=== PATIENT | male | born 1985 | race Hispanic/Latino ===

== ENCOUNTER 2017-04-11 18:30 | Emergency (ER) | payer OTHER ==
--- NOTE | 2017-04-11 21:07 | XRay Report ---
FINAL REPORT EXAM: XR KNEE 1-2V RT HISTORY: Right knee injury TECHNIQUE: Right knee 2 views PRIORS: None. FINDINGS: No fracture is identified. No dislocation seen. No evidence of joint effusion. Patella demonstrates normal positioning. No acute bony abnormality identified. IMPRESSION: Negative knee series
[2017-04-11] MEDS ORDERED: MOTRIN PO ONE (21:33)
[2017-04-11] MEDS ORDERED: MOTRIN ONE (21:33)
[2017-04-11] MEDS ORDERED: FLEXERIL PO ONE (23:14)
[2017-04-11] MEDS ORDERED: NORCO 7.5/325 PO ONE (23:14)
--- NOTE | 2017-04-12 01:09 | Emergency Department Report ---
ED Lower Extremity HPI - General Chief Complaint: Extremity Injury, Lower Stated Complaint: RIGHT KNEE PAIN/WORK RELATED Source: patient Mode of arrival: Wheelchair Limitations: No Limitations - History of Present Illness Initial Comments: 31 year old male presents to ED with right knee pain x 1 day after jumping off of stationary truck. patient states the jump was approx 4 feet. patient is stable, neurologically intact and in no acute distress. patient denies LOC or trauma to head. MD Complaint: knee injury -: Sudden Injury: Knee: Right Place: street/outdoors Severity: mild Worsens With: weight bearing, movement Context: fall, jumping Associated Symptoms: swelling, unable to bear weight. denies: numbness, tingling - Related Data Previous Rx's Medication Instructions Recorded Last Taken Type Meloxicam [Mobic] 7.5 mg PO QDAY #7 tablet 04/12/17 Unknown Rx methOCARBAMOL [Robaxin TAB] 500 mg PO TID #21 tab 04/12/17 Unknown Rx Allergies Allergy/AdvReac Type Severity Reaction Status Date / Time No Known Allergies Allergy Verified 04/11/17 21:30 ED Review of Systems ROS: Stated complaint: RIGHT KNEE PAIN/WORK RELATED Other details as noted in HPI Constitutional: denies: chills, fever Eyes: denies: eye pain, eye discharge, vision change ENT: denies: ear pain, throat pain Respiratory: denies: cough, shortness of breath, wheezing Cardiovascular: denies: chest pain, palpitations Endocrine: no symptoms reported Gastrointestinal: denies: abdominal pain, nausea, vomiting, diarrhea Genitourinary: denies: urgency, dysuria Musculoskeletal: joint swelling, arthralgia (right knee pain). denies: back pain Skin: denies: rash, lesions Neurological: denies: headache, weakness, numbness, paresthesias, confusion, vertigo Psychiatric: denies: anxiety, depression Hematological/Lymphatic: denies: easy bleeding, easy bruising ED Past Medical Hx - Past Medical History Previous Medical History?: No - Surgical History Past Surgical History?: Yes Hx Open Heart Surgery: Yes Additional Surgical History: Ankle surgery - Social History Smoking Status: Current Every Day Smoker Substance Use Type: Alcohol - Medications Home Medications: Home Medications Medication Instructions Recorded Confirmed Last Taken Type Meloxicam [Mobic] 7.5 mg PO QDAY #7 tablet 04/12/17 Unknown Rx methOCARBAMOL [Robaxin TAB] 500 mg PO TID #21 tab 04/12/17 Unknown Rx ED Physical Exam - General Limitations: No Limitations General appearance: alert, in no apparent distress - Head Head exam: Present: atraumatic, normocephalic - Eye Eye exam: Present: normal appearance - ENT ENT exam: Present: mucous membranes moist - Neck Neck exam: Present: normal inspection, full ROM. Absent: tenderness - Respiratory Respiratory exam: Present: normal lung sounds bilaterally. Absent: respiratory distress, wheezes, rales, rhonchi - Cardiovascular Cardiovascular Exam: Present: regular rate, normal rhythm. Absent: systolic murmur, diastolic murmur, rubs, gallop - GI/Abdominal GI/Abdominal exam: Present: soft, normal bowel sounds. Absent: distended, tenderness, guarding - Rectal Rectal exam: Present: deferred - Extremities Exam Extremities exam: Present: normal inspection - Expanded Lower Extremity Exam Right Hip exam: Present: normal inspection, full ROM. Absent: tenderness Upper Leg exam: Present: normal inspection, full ROM. Absent: tenderness Knee exam: Present: tenderness, swelling (mild). Absent: full ROM (limited ROM due to pain), dislocation, erythema, full knee extension Lower Leg exam: Present: normal inspection, full ROM. Absent: tenderness Ankle exam: Present: normal inspection, full ROM. Absent: tenderness Foot/Toe exam: Present: normal inspection, full ROM. Absent: tenderness Neuro vascular tendon exam: Present: no vascular compromise Gait: Positive: not tested/not observed, unable to bear weight - Back Exam Back exam: Present: normal inspection, full ROM. Absent: tenderness - Neurological Exam Neurological exam: Present: alert, oriented X3 - Psychiatric Psychiatric exam: Present: normal affect, normal mood - Skin Skin exam: Present: warm, dry, intact, normal color. Absent: rash ED Course Vital Signs 04/11/17 04/11/17 04/11/17 19:00 21:34 22:28 Temperature 98.4 F Pulse Rate 90 Respiratory 18 18 18 Rate Blood Pressure 130/79 Blood Pressure [Left] O2 Sat by Pulse 99 100 Oximetry 04/11/17 04/12/17 23:23 01:38 Temperature Pulse Rate 63 Respiratory 18 18 Rate Blood Pressure Blood Pressure 132/69 [Left] O2 Sat by Pulse 98 Oximetry ED Lower Extremity MDM - Radiology Data Radiology results: report reviewed XR right knee Negative knee series - Medical Decision Making 31 year old male presents to ED with right knee pain x 1 day after jumping 4 feet off of stationary truck/vehicle. patient has negative imaging study of right knee. I have offered to do CT scan of patient's right knee and patient has refused stating "I dont think its my bone, I'm going to my doctor in the morning for further evaluation." patient agrees and understands to follow up with his MD tomorrow for further evaluation. patient is stable, neurologically intact and in no acute distress. patient has been provided with crutches for ambulating assistance and knee immobilizer until further evaluation tomorrow by patient's PCP. Critical care attestation.: If time is entered above; I have spent that time in minutes in the direct care of this critically ill patient, excluding procedure time. ED Disposition Clinical Impression: Knee pain, acute Qualifiers: Laterality: right Qualified Code(s): M25.561 - Pain in right knee Disposition: DC- TO HOME OR SELFCARE Is pt being admited?: No Does the pt Need Aspirin: No Condition: Stable Instructions: Knee Pain (ED), Knee Immobilizer (ED) Prescriptions: Meloxicam [Mobic] 7.5 mg PO QDAY #7 tablet methOCARBAMOL [Robaxin TAB] 500 mg PO TID #21 tab Referrals: MARY GRACE ROLLINS MD [Staff Physician] - 2-3 Days
[2017-04-12 01:39] VITALS: BP 132/69
== END 2017-04-12 01:38 | disposition home or self-care (01) ==
LOC: ED 18:30
DX: M25.561 Pain in right knee (principal); F17.200 Nicotine dependence, unspecified, uncomplicated; W17.89XA Other fall from one level to another, initial encounter; Y93.89 Activity, other specified; Y99.9 Unspecified external cause status; Y92.410 Unspecified street and highway as the place of occurrence of the external cause